=== PATIENT | male | born 1980 | race Caucasian/White ===

== ENCOUNTER 2022-03-27 18:48 | Emergency (ER) | payer BC, SELFPAY ==
[2022-03-27 18:49] VITALS: BP 113/75; PULSE 90; RESP 21; TEMP 36.6; O2SAT 100; BMI 36.5
--- NOTE | 2022-03-27 18:50 | XRR_ITS ---
PROCEDURE INFORMATION: Exam: XR Right Hand Exam date and time: 03/27/2022 7:14 PM Age: 41 years old Clinical indication: Pain; Finger(s); Right; Patient HX: Crushed RT. Thumb; Additional info: Injury TECHNIQUE: Imaging protocol: XR Right hand. Views: 3 or more views. COMPARISON: No relevant prior studies available. FINDINGS: Bones/joints: Comminuted fracture of the distal 1st phalanx and tuft. Soft tissues: Amputation of the distal 1st digit. XR/XR hand RT min 3V* [id number] IMPRESSION: Amputation of the distal 1st digit with comminuted fracture of the distal 1st phalanx and tuft.
[2022-03-27 19:16] VITALS: BP 123/68; PULSE 90; RESP 16; O2SAT 98
--- NOTE | 2022-03-27 20:08 | ED_ITS ---
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 He does have a distal amputation to the right thumb denies any other injuries. States he does have pain in that digit he rates his pain a 7 out of 10 Associated symptoms: Denies abdominal pain, back pain, chest pain, chills, dental pain, fever(s), headache(s), nausea or vomiting Review of Systems Const: Denies: fever(s), chills, body aches or change in appetite Eyes: Denies: blurry vision or eye discomfort ENMT: Denies: throat pain or dental pain Card: Denies: chest pain Resp: Denies: dyspnea GI: Denies: abdominal pain, nausea, vomiting or diarrhea : Denies: dysuria Musc: Denies: neck pain or back pain Skin/Breast: Denies: rash Neuro: Denies: headache(s) Psych: Denies: depression Óscar/Lymph: Denies: easy bruising All/Imm: Denies: urticaria PFSH ED PFSH: Medical History No pertinent past medical history Social History (Updated 03/27/22 @ 21:21 by Owen Flores MD) Substance/Drug Use: never Physical Exam Const: COMMON NORMALS: no acute distress, patient oriented x3 and healthy appearing HENMT: COMMON NORMALS: normocephalic and atraumatic HEAD & SCALP: normocephalic and atraumatic Eye: COMMON NORMALS: Equal, round and reactive pupils present and EOMs intact bilaterally PUPIL: Yes Equal, round and reactive pupils present Neck/C-Spine: COMMON NORMALS: full ROM and supple Chest: COMMONS NORMALS: normal inspection of the chest and normal palpation of entire chest wall Resp: COMMON NORMALS: normal respiratory effort, No retractions, No use of accessory muscles and clear to auscultation bilaterally AUSCULTATION: clear to auscultation bilaterally Cardio: COMMON NORMALS: regular rate, regular rhythm and No murmurs present (Cardio) RATE: regular rate RHYTHM: regular rhythm GI: COMMON NORMALS: Normal to inspection, nondistended, normoactive bowel sounds present, Soft to palpation, non-tender and no masses PALPATION: Yes Soft to palpation Extremity: COMMON NORMALS: full ROM NARRATIVE EXTREMITY EXAM: Amputation distal tip of the right thumb just at the base of his nailbed does have some slight exposed bone Neuro: COMMON NORMALS: patient oriented x3, moves all extremities and no focal motor deficits Psych: COMMON NORMALS: mental status grossly normal, Normal thought process present and cooperative THOUGHT PROCESS: Normal thought process present Skin: COMMON NORMALS: no rashes or lesions noted and no wounds GENERAL SKIN EXAM: no rashes or lesions noted Course Vital Signs: Vital signs: Vital Signs Temperature 97.9 F 03/27/22 18:49 Pulse Rate 85 03/27/22 20:42 Respiratory Rate 16 03/27/22 20:42 Blood Pressure 135/70 03/27/22 20:42 Pulse Oximetry 96 03/27/22 20:42 MDM - Trauma Medical Decision Making Patient presents with amputation of the distal tip of his thumb. On spoke to hand surgery at [place] along with Dr. Mckenzie here both recommended follow- up tomorrow. I informed patient of this gave him's options of who to see and he is going to see Dr. Mckenzie tomorrow. I did do a digital block with good pain control gave him IV Ancef will prescribe him pain meds and antibiotics did place a bulky dressing over the amputated laws tip. He did find the distal tip but he had been hours and the tip did not look viable will likely just need a rongeur and a flap patient is to follow-up with Dr. Mckenzie tomorrow Lab Data Radiology Impressions Hand X-Ray 03/27/22 18:50 IMPRESSION: Amputation of the distal 1st digit with comminuted fracture of the distal 1st phalanx and tuft. Discharge Plan Discharge Patient Disposition: Home Clinical Impression: Amputation of thumb, right Qualifiers: Encounter type: initial encounter Qualified Code(s): S68.011A - Complete traumatic metacarpophalangeal amputation of right thumb, initial encounter Condition: Stable Prescriptions: New hydrocodone-acetaminophen 5-325 mg tablet 1 tab PO Q6H PRN (Reason: pain) Qty: 14 0RF Bactrim DS 800-160 mg tablet 1 tab PO BID 10 Days Qty: 20 0RF cephalexin 500 mg capsule 500 mg PO TID 7 Days Qty: 21 0RF No Action metformin 1,000 mg Tablet 1,000 mg PO BID 0RF lisinopril-hydrochlorothiazide 20-25 mg Tablet 1 tab PO DAILY 0RF atenolol 50 mg Tablet 25 mg PO BID 0RF Rx Instructions: take half a tab bid Discharge Orders: Discharge ED (Routine); Ordered 03/27/22 Ordered By: Owen Flores Referrals: Dori Martini MD [Physician] - 1-3 days Discharge Diet: Advance as tolerated Discharge Activity: Resume usual activity Patient Instructions: Finger Amputation (ED), Opioid Safety Coding Level of Care Code ED [employer] Print[employer] Supervisor for Savi Elizondo
--- NOTE | 2022-03-27 20:08 | PC.NURSE ---
Right thumb soaked in betadine with sterile water
[2022-03-27] MEDS: HYDROcodone-acetaminophen 5-325 mg Tablet 1 TAB PO (20:33)
[2022-03-27 20:42] VITALS: BP 135/70; PULSE 85; RESP 16; O2SAT 96
--- NOTE | 2022-03-27 20:42 | PC.NURSE ---
bulky dressing applied to Right thumb at this time. Circulation and sensation intact
== END 2022-03-27 20:49 | disposition home or self-care (01) ==
PROVIDERS: Emergency Provider Emergency Medicine
DX: S68.011A Complete traumatic metacarpophalangeal amputation of right thumb, initial encounter (principal); X58.XXXA Exposure to other specified factors, initial encounter; Y93.89 Activity, other specified
CPT/HCPCS: 73130; 96365; 99284; J0690; J3490

== ENCOUNTER 2022-03-28 13:58 | Day surgery (SDC) | payer BC, SELFPAY ==
[2022-03-28] VITALS (9 sets, daily range): BP systolic 118–152; BP diastolic 69–94; PULSE 75–96; RESP 12–17; TEMP 36.1–36.8; O2SAT 92–99; BMI 36.5
--- NOTE | 2022-03-28 14:49 | ANES.PREANE2 ---
Pre-Anesthetic Assessment Height/Weight: Height 1.73 m Weight 108.862 kg Temp Pulse Resp BP Pulse Ox 97.3 F L 75 16 133/94 98 03/28/22 14:18 03/28/22 14:18 03/28/22 14:18 03/28/22 14:18 03/28/22 14:18 Preop Diagnosis: Partial right thumb traumatic amputation Operation Date: 03/28/22 16:00 Proposed Procedures p right thumb traumatic amputation revision 36805/s68.011a(Right) - Dori Martini MD Familial anesthetic complications: None Was Beta Castillo taken within 24 hours: Yes Was Clonidine taken within 24 hours: N/A Last intake: Intake Last Liquid Date 03/27/22 Last Liquid Time 22:00 Last Solid Date 03/27/22 Last Solid Time 22:00 Social Tobacco (chews) and No alcohol Exam alert, oriented x 3, clear to auscultation bilaterally and regular rate & rhythm Airway Mallampati: Class III Dentition: chipped Comments: Comments: full lin Pulmonary None reported CV/HEM Hypertension None reported Hepatic None reported GI None reported Metabolic Diabetes Mellitus and Morbid Obesity [facility] None reported Neuropsych None reported Anesthetic Plan ASA status: 2 Anesthesia: MAC Risk of > 500 ml blood loss (7ml/kg in children): No Medications/Allergies Home Medications Medication Instructions Recorded Confirmed Last Taken Type atenolol 50 mg tablet 25 mg PO BID 03/27/22 03/28/22 03/27/22 22:00 History cephalexin 500 mg capsule 500 mg PO TID 7 Days #21 cap 03/27/22 03/28/22 Unknown Rx hydrocodone 5 mg-acetaminophen 325 1 tab PO Q6H PRN #14 tab 03/27/22 03/28/22 03/28/22 06:00 Rx mg tablet lisinopril 20 1 tab PO DAILY 03/27/22 03/28/22 03/27/22 08:00 History mg-hydrochlorothiazide 25 mg tablet metformin 1,000 mg tablet 1,000 mg PO BID 03/27/22 03/28/22 03/27/22 22:00 History sulfamethoxazole 800 1 tab PO BID 10 Days #20 tab 03/27/22 03/28/22 Unknown Rx mg-trimethoprim 160 mg tablet (Bactrim DS) cetirizine 10 mg tablet (Zyrtec) 10 mg PO DAILY 03/28/22 03/28/22 03/27/22 08:00 History sour jeffrey extract 1,000 mg 1,000 mg PO DAILY 03/28/22 03/28/22 03/26/22 History capsule (Tart Jeffrey Extract) Allergies Allergy/AdvReac Type Severity Reaction Status Date / Time Penicillins Allergy ALGY-Hives Verified 03/28/22 14:11 [facility] Anesthesia Medical History No pertinent past medical history Social History Smoking and tobacco status: never smoked Data Anesthesia Cardiac Studies: No Data to Display
[2022-03-28 15:06] LABS: Glucose Point of Care 130 mg/dL (70-110)
[2022-03-28] MEDS: CELEcoxib 200 mg Capsule 400 MG PO (15:07)
[2022-03-28] MEDS: acetaminophen 1,000 MG/100 ML PIGGYBACK 400 MG IV (15:08)
[2022-03-28] MEDS: sodium chloride 0.9% 1,000 ML 30 ML IV (15:22)
--- NOTE | 2022-03-28 15:30 | SUR.PREOP ---
1530-tetanus vaccine administered in the left upper arm
[2022-03-28 15:32] LABS: Basophils # 0.1 10^3/uL (0.0-0.1); Basophils % 0.6 %; Eosinophils # 0.1 10^3/uL (0.0-0.8); Hematocrit 38.4 % (42.0-52.0); Hemoglobin 13.7 g/dL (11.7-16.6); Lymphocytes # 2.9 10^3/uL (0.8-4.8); Lymphocytes % 37.8 %; Mean Corpuscular HGB Conc 35.7 g/dL (30.0-36.0); Mean Corpuscular Hemoglobin 30.9 pg (28.0-34.0); Mean Corpuscular Volume 86.5 fl (80-94); Mean Platelet Volume 10.3 fL (7.4-10.4); Monocytes # 0.4 10^3/uL (0.2-0.9); Monocytes % 5.2 %; Neutrophils # 4.26 10^3/uL (1.8-7.7); Nucleated Red Blood Cells % 0 %; Platelet Count 221 10^3/cmm (130-400); Red Blood Count 4.44 10^6/uL (4.1-5.3); Red Cell Distribution Width 12.2 % (12.1-15.1); White Blood Count 7.8 10^3/uL (4.0-10.0)
[2022-03-28] MEDS: tetanus-dipt-pertussis 0.5 mL SDV IM (15:37)
[2022-03-28 15:57] LABS: Alanine Aminotransferase 44 U/L (0-41); Albumin Level 4.7 g/dL (3.5-5.2); Alkaline Phosphatase 43 IU/L (40-130); Aspartate Amino Transferase 25 U/L (0-40); Blood Urea Nitrogen 15 mg/dL (6-20); Calcium 8.6 mg/dL (8.5-10.5); Carbon Dioxide 24 mmol/L (22-29); Chloride 98 mmol/L (98-107); Creatinine Clr Calc Pharmacy 145.3801; Globulin 1.7 g/dL (1.3-4.6); Glomerular Filtration Rate 106.5 mL/min (90-130); Glucose 131 mg/dL (65-115); Osmolality Calculated 287 mOsm/kg (285-295); Sodium 137 mmol/L (136-145); Total Bilirubin 0.7 mg/dL (0.15-1.2); Total Protein 6.4 g/dL (6.6-8.7)
[2022-03-28] MEDS: vancomycin 1,000 MG in sodium chloride 0.9% 250 ML 250 MG IV (16:24)
[2022-03-28] MEDS: vancomycin 1,000 MG SDV 1000 MG IRRIGATION (18:17)
[2022-03-28] MEDS: silvasorb gel 44.4 mL 1 APPLIC TOPICAL (18:59)
--- NOTE | 2022-03-28 19:45 | PM.OP ---
Operative Report Date of procedure: March 28, 2022 Pre-op diagnosis: Partial right thumb traumatic amputation Post-op diagnosis: Partial right thumb traumatic amputation Post-op findings: Comminuted distal phalanx fracture with significant soft tissue damage. Procedure done: Revision traumatic amputation right thumb Specimens removed/disposition: Bone, disposed of Pathology: None sent Surgeon: Dori Martini Supervisory Geographer: None Anesthesia: General (General LMA, ASA 2) Estimated blood loss (mL): 5 Tourniquet time (min): 0 IV fluids (mL): 300 Urine output (mL): 0 Complications: None Findings: Significant soft tissue damage with excellent blood supply. Minimal maintained nailbed. No evidence of significant contamination. 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 He suffered amputation of the tip of his right thumb, and he also had significant soft tissue damage. After he had been in the emergency department last evening for approximately an hour or more, the tip of the finger was brought to the emergency department, however, it was deemed to be completely nonviable. After discussion, the patient was discharged home to follow-up with me in the office today with plans for surgery this evening. Types of surgical interventions were discussed with the patient. Risks and complications were explained. Consents were signed. Procedure: Patient was brought to the operating theater. He was placed on the operating room table. Patient underwent general anesthesia with LMA, ASA 2. This was well-tolerated. Patient was administered 1 g of vancomycin as he was penicillin allergic. A tourniquet was placed high on the arm, but this was not elevated throughout the case. Surgical pause was performed prior to commencement of the surgical procedure. At the time of the surgical pause we identified the site and side of surgery. We also identified the patient's identity and appropriate administration of IV antibiotics. Following the surgical pause, the thumb was evaluated. There was noted to be a comminuted piece of bone which was removed. The distal phalanx was then shortened to match the area of the comminuted fracture. Evaluation also demonstrated that there was some remaining nailbed, and this was retained. Soft tissues were evaluated. Hemostasis was obtained. The wound was cleaned. It was soaked in vancomycin containing saline. Attention was then directed to revision of the amputation. We were able to construct the soft tissues and trimmed slightly to afford a primary closure with tissue that was likely sensate. This was accomplished with 3-0 nylon. Evaluation was made after closure of the soft tissue for tissue viability. It looked good, and attention was directed to the dressing. SilvaSorb was placed on the wound. This was followed by 2 x 2's, subsequently, a tube gauze dressing was placed. Patient was returned to recovery room in satisfactory condition and will be discharged home. There were no specimens sent. There were no complications. Related Problem List Diagnoses (1) Amputation of thumb, right:
[2022-03-28] MEDS: HYDROcodone-acetaminophen 5-325 mg Tablet 1 TAB PO (19:46)
--- NOTE | 2022-03-28 21:09 | ANE.PACU2 ---
Inpatient post-anesthesia follow up: Airway intact: Yes Vital signs: Temperature 98 F Pulse Rate 83 Respiratory Rate 17 Blood Pressure 152/85 Pulse Oximetry 95 Oxygen Delivery Me thod Room Air Oxygen Flow Rate 6 Fraction of Inspir ed Oxygen Hydration adequate: Yes Nausea and vomiting: No Pain level: 2 Mental status: Baseline
== END 2022-03-28 20:25 | disposition home or self-care (01) ==
PROVIDERS: Visit Provider Specialist
PROC: (CPT 26951; principal; 2022-03-28 16:00)
DX: S68.011A Complete traumatic metacarpophalangeal amputation of right thumb, initial encounter (principal); W23.0XXA Caught, crushed, jammed, or pinched between moving objects, initial encounter; I10 Essential (primary) hypertension; E11.9 Type 2 diabetes mellitus without complications; E66.01 Morbid (severe) obesity due to excess calories; Z68.36 Body mass index [BMI] 36.0-36.9, adult
CPT/HCPCS: 26951; 36415; 36416; 80053; 82962; 85025; 90715; J2405; J2704; J3010; J3370; J7030